=== PATIENT | male | born 1990 | race Hispanic/Latino ===

== ENCOUNTER → 2017-05-14 | Outpatient (CLI) | payer OTHER ==
[2017-05-14 11:27] LABS: BASO # 0.1 10^3/uL (0.0-0.2); BASO % 1.4 % (0.0-1.0); EOS # 0.1 10^3/uL (0.0-0.50); EOS % 1.8 % (0.0-3.0); HEMATOCRIT 43.2 % (42.0-52.0); HEMOGLOBIN 15.1 g/dl (14.0-18.0); IMMATURE GRANULOCYTE % 0.5 % (0-0); LYMPH # 1.5 10^3/uL (1.5-6.5); MEAN CORPUSCULAR HEMOGLOBIN 30.7 pg (27.0-33.0); MEAN CORPUSCULAR VOLUME 87.8 fl (80.0-96.0); MONO # 0.4 10^3/uL (0.0-0.8); MONO % 9.8 % (0.0-5.0); NEUTROPHILS # 2.3 10^3/uL (1.8-7.7); NEUTROPHILS % 51.5 % (36.0-66.0); PLATELET COUNT, AUTOMATED 205 10^3/uL (150-450); RED BLOOD COUNT 4.92 10^6/uL (4.30-6.10); RED CELL DISTRIBUTION WIDTH 11.3 % (11.5-14.5); WHITE BLOOD COUNT 4.4 10^3/uL (4.0-10.0)
[2017-05-14 11:36] LABS: INR 1.03; PARTIAL THROMBOPLASTIN TIME 27.8 SECONDS (26.8-37.9); PROTHROMBIN TIME 13.6 SECONDS (12.4-14.5)
== END ==
LOC: M LAB 10:45
DX: R04.0 Epistaxis (principal); J32.4 Chronic pansinusitis
CPT/HCPCS: 85610

== ENCOUNTER → 2017-05-19 | Outpatient (CLI) | payer OTHER | LOC: M RAD 15:53 | DX: J32.4 Chronic pansinusitis (principal) | CPT/HCPCS: 70486 ==

== ENCOUNTER 2017-07-12 10:21 | Day surgery (SDC) | payer OTHER ==
[~2017-07-12 10:21] MED LIST: LIDOCAINE 2% INJ 100 MG/5 ML SDV (FOR ANES.) As Ordered; MIDAZOLAM INJ 2 MG/2 ML VIAL (J2250) As Ordered; PROPOFOL 200 MG/20 ML VIAL As Ordered; ROCURONIUM BROMIDE 50 MG/5 ML VIAL As Ordered; fentaNYL 250 MCG/5 ML INJECTION (J3010) As Ordered
[2017-07-12] MEDS: LR 1,000 ML IV (10:45)
[2017-07-12] MEDS ORDERED: GLYCOPYRROLATE INJ 0.2 MG/ML 2 ML VIAL As Ordered (11:15)
[2017-07-12] MEDS ORDERED: NEOSTIGMINE 10 MG/10 ML VIAL (J2710) As Ordered (11:15)
[2017-07-12] MEDS: OXYMETAZOLINE NASAL SPRAY (AFRIN) As Ordered (11:20)
[2017-07-12] MEDS ORDERED: ePHEDrine SULFATE 25 MG/5 ML(5MG/ML) SYRINGE As Ordered (11:31)
[2017-07-12] MEDS: LIDOCAINE W/EPINEPHRINE 1% 20ML VIAL As Ordered (12:03)
[2017-07-12] MEDS ORDERED: PERCOCET 5MG/325MG TAB As Ordered (12:29)
[2017-07-12] MEDS: PERCOCET 5MG/325MG TAB PO ×2 (12:36→13:24)
[2017-07-12] MEDS ORDERED: LR 1,000 ML IV (12:45)
[2017-07-12] MEDS ORDERED: fentaNYL 100 MCG/2 ML INJECTION (J3010) IV (12:45)
[2017-07-12] MEDS ORDERED: ONDANSETRON 4MG/2ML VIAL (J2405) IV (12:45)
== END 2017-07-12 13:56 | disposition home or self-care (01) ==
LOC: M SDC 10:21
DX: J34.2 Deviated nasal septum (principal)
CPT/HCPCS: 30520